=== PATIENT | female | born 1975 | race Caucasian/White ===

== ENCOUNTER 2022-12-27 23:28 | Emergency (ER) | payer BC ==
[~2022-12-27] VITALS: Ht 160 cm; Wt 79.5 kg
[2022-12-28] MEDS ORDERED: ketorolac trometh. 30mg/ml inj. IV ONE (00:15)
[2022-12-28] MEDS ORDERED: LORazepam 2 mg/ml vial IV ONE (00:15)
[2022-12-28] MEDS ORDERED: ondansetron/PF 4mg/2ml inj IV ONE (00:15)
[2022-12-28] MEDS ORDERED: propofol 10mg/ml 20ml vial IV ONE (00:15)
[2022-12-28] MEDS ORDERED: bacitracin 15gm ointment TP ONE (00:15)
[2022-12-28] MEDS ORDERED: ceFAZolin/D5W- 1GM premix 50 ML IV ONE (00:15)
[2022-12-28] MEDS ORDERED: AMOX-419 PO (00:23)
[2022-12-28] MEDS ORDERED: ONDA8TAB13 PO (00:23)
[2022-12-28] MEDS ORDERED: HYDR-3965 PO (00:23)
[2022-12-28] MEDS ORDERED: LIDOcaine 1% W/epiNEPHrine 1:100,000 20ml vial IJ ONE (00:30)
[2022-12-28 02:04] VITALS: BP 132/85
== END 2022-12-28 02:46 | disposition home or self-care (01) ==
LOC: ER 23:30
DX: N61.0 Mastitis without abscess (principal)
CPT/HCPCS: 10060; 87070; 87077; 87186; 96365; 96375; 99152; 99153; 99285; J0690; J1885; J2060; J2405; J7030; 94760; A4620

== ENCOUNTER 2023-02-04 07:06 | Emergency (ER) | payer BC ==
[~2023-02-04] VITALS: Ht 167.6 cm; Wt 90.0 kg
[~2023-02-04 07:06] MED LIST: ONDA8TAB13 PO
[2023-02-04] MEDS ORDERED: haloperidol lactate 5mg/ml inj IM ONE (07:30)
[2023-02-04] MEDS ORDERED: diphenhydrAMINE 50 mg/ml inj IM ONE (07:30)
--- NOTE | 2023-02-04 07:44 | NUR ---
PT ASKED FOR HER MOTHER TO BE CALLED. PT GAVE THIS Tomo Clases PHONE NUMBER:[phone] AND STATES THAT IS MOTHER'S PHONE NUMBER.
[2023-02-04 08:47] LABS: BASOPHILS % (AUTO) 0.4 % (0-1); EOSINOPHILS # (AUTO) 0.2 X10'3 (0-0.9); EOSINOPHILS % (AUTO) 2.1 % (0-6); HEMATOCRIT 36.8 % (35.0-45.0); HEMOGLOBIN 12.4 g/dl (12.0-16.0); LYMPHOCYTES # (AUTO) 1.6 X10'3 (1.1-4.8); LYMPHOCYTES % (AUTO) 15.8 % (21-51); MEAN CORPUSCULAR HEMOGLOBIN 29.5 PG (27.0-31.0); MEAN CORPUSCULAR HGB CONC 33.6 g/dL (33.0-36.5); MEAN CORPUSCULAR VOLUME 87.7 FL (78-98); MEAN PLATELET VOLUME 6.7 FL (7.4-10.4); MONOCYTES # (AUTO) 0.6 X10'3 (0-0.9); MONOCYTES % (AUTO) 5.8 % (2-12); NEUTROPHILS # (AUTO) 7.4 X10'3 (1.8-7.7); NEUTROPHILS % (AUTO) 75.9 % (42-75); PLATELET COUNT 393 X10'3 (140-440); RED BLOOD COUNT 4.19 X10'6 (4.20-5.60); RED CELL DISTRIBUTION WIDTH 13.9 % (11.5-14.5); WHITE BLOOD COUNT 9.8 X10'3 (4.5-11.0)
[2023-02-04 08:55] LABS: ALANINE AMINOTRANSFERASE 38 U/L (12-78); ALBUMIN 3.4 G/DL (3.4-5.0); ALBUMIN/GLOBULIN RATIO 1.1 (1.1-1.5); ALKALINE PHOSPHATASE 71 IU/L (46-116); ANION GAP 9 (8-16); ASPARTATE AMINO TRANSFERASE 26 U/L (10-37); BILIRUBIN,TOTAL 0.9 MG/DL (0.1-1.0); BLOOD UREA NITROGEN 16 MG/DL (7-18); BUN/CREATININE RATIO 13.6 (10.0-20.0); CALCIUM 8.5 MG/DL (8.5-10.1); CHLORIDE 107 MMOL/L (99-107); CREATININE 1.18 MG/DL (0.40-0.90); GLUCOSE 133 MG/DL (70-104); POTASSIUM 3.4 MMOL/L (3.5-5.1); SODIUM 140 MMOL/L (135-145); TOTAL CARBON DIOXIDE 23.9 MMOL/L (24-32); TOTAL PROTEIN 6.6 G/DL (6.4-8.2); eGFR 49 ML/MIN
[2023-02-04 09:05] LABS: ACETAMINOPHEN 13.6 UG/ML (10-30); ETHANOL < 0.010 GM/DL (0.0-0.010)
--- NOTE | 2023-02-04 10:15 | NUR ---
Patient sleeping at this time, pulse ox placed on toe for patient safety with normal saturations, provided blanket.
--- NOTE | 2023-02-04 11:52 | NUR ---
Vivian Balderas (Mother) [phone] for updates
[2023-02-04 13:30] LABS: CLARITY,URINE SLIGHTLY CLOUDY (Clear); COLOR,URINE YELLOW (Yellow); GLUCOSE, URINE NEGATIVE (Neg); KETONES,URINE NEGATIVE (Neg); LEUKOCYTE ESTERASE ,URINE NEGATIVE (Neg); OCCULT BLOOD,URINE NEGATIVE (Neg); PH,URINE 5.5 (4.8-8.0); PROTEIN,URINE NEGATIVE (Neg); UROBILINOGEN,URINE 0.2 E.U/dL (0.2-1.0)
[2023-02-04 13:31] LABS: URINE HCG NEGATIVE (NEG)
[2023-02-04 13:36] LABS: UA COLLECTION TYPE CLN CATCH MIDSTREAM
--- NOTE | 2023-02-04 13:40 | NUR ---
Call from lab nitrate report amended. false positive. RN/MD notified.
[2023-02-04 13:41] LABS: NITRITES, URINE NEGATIVE (Neg)
[2023-02-04 13:42] LABS: BACTERIA,URINE FEW /HPF (Neg); MUCUS STRANDS MANY /LPF (Neg); RBC,URINE 0-2 /HPF (0-2); SQUAMOUS EPITHELIAL CELL,UR MANY /LPF (FEW); WBC,URINE 0-4 /HPF (0-4)
[2023-02-04 14:02] LABS: URINE AMPHETAMINE SCREEN POSITIVE (Neg); URINE BARBITUATE SCREEN NEGATIVE (Neg); URINE BENZODIAZEPINES SCREEN NEGATIVE (Neg); URINE CANNABINOID SCREEN NEGATIVE (Neg); URINE COCAINE SCREEN NEGATIVE (Neg); URINE METHADONE SCREEN NEGATIVE (Neg); URINE OPIATE SCREEN POSITIVE (Neg); URINE PHENCYCLIDINE SCREEN NEGATIVE (Neg)
--- NOTE | 2023-02-04 14:46 | NUR ---
Pt moved to room 13. Pt currently resting in bed. No acute distress noted at this time. Pt son at bedside.
--- NOTE | 2023-02-04 14:51 | NUR ---
Pt not currently in green scrubs. Pt unable to change at this time, too sleepy.
[2023-02-04 17:35] VITALS: BP 113/83; PULSE 98; RESP 16; O2SAT 97
--- NOTE | 2023-02-04 17:35 | NUR ---
PT RESTING IN BED. NO ACUTE DISTRESS NOTED AT THIS TIME.
--- NOTE | 2023-02-04 21:43 | NUR ---
Pt arrived in ER overflow. Pt pleasant, no distress. Pt stated she is waiting for her son to pick her up. MD is releasing patient to family upon arrival.
--- NOTE | 2023-02-04 22:00 | NUR ---
Pt son arrived. All written and verbal instructions provided to patient. She consented to safety plan. She will be contacting [facility] unit as per safety plan. 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 Pt did not have any questions. releasing patient. Pt was evaluated by [facility]. Pt discharged to son.
[2023-02-04 22:04] VITALS: TEMP 97.6
== END 2023-02-04 22:18 | disposition home or self-care (01) ==
LOC: ER 07:06
DX: T39.1X2A Poisoning by 4-Aminophenol derivatives, intentional self-harm, initial encounter (principal); Z20.822 Contact with and (suspected) exposure to COVID-19; Z79.899 Other long term (current) drug therapy; Y92.89 Other specified places as the place of occurrence of the external cause
CPT/HCPCS: 36415; 80053; 80305; 80320; 80329; 81001; 81025; 84443; 85025; 87811; 96372; 99285; J1200; J1630; 99284

== ENCOUNTER 2025-03-31 22:10 | Emergency (ER) | payer BC ==
[~2025-03-31] VITALS: Ht 160 cm; Wt 86.0 kg
[~2025-03-31 22:10] MED LIST changes: +ONDA-245 PO; -ONDA8TAB13 PO
[2025-03-31 22:18] VITALS: TEMP 97.1
--- NOTE | 2025-03-31 22:28 | ELECTROCARDIOGRAPH REPORT ---
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
--- NOTE | 2025-03-31 22:39 | Physician Documentation ---
History of Present Illness ~ Chief Complaint: Dizziness Stated Complaint: NAUSEA/VOMITING Time Seen by MD: 22:34 HPI Patient presents to the emergency room with sudden onset dizziness while she was at work. She states her dizziness is exacerbated with head movement and de scribed as if the room is spinning. No one-sided symptoms/weakness. No chest pain or palpitations. Positive nausea with vomiting Medication Reconciliation Allergies: Coded Allergies: No Known Allergies (Unverified , 12/27/22) Scheduled Ondansetron 8mg ODT (Ondansetron Odt), 1 TAB PO Q6H Past Medical History Past Medical History: No Pertinent History Past Surgical History: noncontributory Lives with: Spouse Lives In: Home Review of Systems ROS All review of systems negative except as per HPI Physical Exam Vital Signs: Temperature: 97.1, Source: Oral, Heart Rate: 73, Respiratory Rate: 16, BP: 156/92, Pulse Oximetry: 100, Weight: 86.000 Oxygen Flow Rate: 0 Physical Exam General: Patient is awake, alert, oriented x4 in no acute distress Head: Normocephalic and atraumatic. Eyes: Conjunctival normal. EOMI. PERRL. ENT: Mucous membranes moist. Neck: Supple, trachea is midline. Chest: Clear to auscultation bilaterally without rales, rhonchi, or wheezes. There is no accessory muscle use or retractions. Cardiac: RRR without murmurs, gallops, or rubs. Neuro: Positive Ryder-Hallpike. No focal neural deficits Progress Progress Note Shanti maneuver attempted on both sides with no improvement of symptoms Results/Orders Results/Orders Completed Orders - MILIND ESCALANTE MD Electrocardiogram (03/31/25 ) Meclizine Tablets (Antivert Tablet) (03/31/25 22:50) Ondansetron Disint. Tablet (Zofran Odt T (03/31/25 22:50) Medications Received in ER Medications (Trade) Dose Ordered Sig/Reema Route PRN Reason Start Time Stop Time Status Last Admin Dose Admin (Antivert tablet) 25 mg ONCE ONCE PO 03/31/25 22:50 03/31/25 22:51 DC 03/31/25 23:01 25 MG (Zofran ODT tablet) 8 mg ONCE ONCE PO 03/31/25 22:50 03/31/25 22:51 DC 03/31/25 23:01 8 MG Vital Signs 03/31/25 03/31/25 03/31/25 03/31/25 22:18 22:46 23:11 23:40 Temp 97.1 Pulse 73 67 84 Resp 16 16 18 16 B/P (MAP) 156/92 162/95 (117) 156/92 (113) Pulse Ox 100 96 98 O2 Flow Rate 0 0 EKG/XRAY/CT/US/VASC/MRI EKG : Additional Comment EKG interpreted by myself shows time of 08/26/2025, rate 79, sinus rhythm, normal axis, no ST changes Medical Decision Making Findings Patient presents to the emergency room with dizziness. Differentials include but are not limited to central vertigo, peripheral vertigo labyrinthitis benign positional vertigo. EKGs reassuring. Given patient's sudden onset of vertigo exacerbated with head movement believe patient is suffering from benign positional vertigo. Nausea improved with anti nausea medications. Meclizine administered. Neurologic exam is reassuring aside from positive Ryder-Hallpike. He had not feel she is suffering from central vertigo/stroke. Had long discussion with her about the pathology of benign positional vertigo as well as the Shanti maneuver. We will refer her to the [facility] should the Shanti maneuver not be sufficient. Departure Disposition: HOME / SELF CARE / HOMELESS Impression: Primary Impression: Benign positional vertigo Condition: Stable Discharge Instructions: Benign Positional Vertigo Additional Instructions: Look up the Shanti maneuver on you tube for techniques and instruction. Follow up with the [facility] should the Shanti maneuver not be effective Referrals: NO PRIMARY CARE PROVIDER (PCP) Prescriptions Ondansetron 8mg ODT (Ondansetron Odt) 8 Mg Tab.rapdis 1 TAB PO Q6H for nausea/vomiting for 3 Days, #12 TAB 0 Refills Prov: MILIND ESCALANTE MD 04/01/25 Meclizine HCl (Meclizine HCl) 25 Mg Tablet 1 TAB PO TID PRN for Dizziness for 10 Days, #30 TAB Prov: MILIND ESCALANTE MD 04/01/25 Education Educated: Patient Educated regarding: diagnosis, treatment, need for follow up Signature Scribe Signature: No scribe Attestation: The note accurately reflects work and decisions made by me.Milind Escalante MD 04/01/25 00:00 MILIND ESCALANTE MD Mar 31, 2025 22:39
[2025-03-31] MEDS: ondansetron 4mg rapidly disintigrating tab PO ONE (23:01)
[2025-04-01] MEDS ORDERED: MECL-302 PO
[2025-04-01] MEDS ORDERED: metoclopramide 5 mg/ml inj IV ONE (00:05)
[2025-04-01 00:22] VITALS: BP 136/84; PULSE 84; RESP 16; O2SAT 98
== END 2025-04-01 00:49 | disposition home or self-care (01) ==
LOC: ER 22:10
DX: H81.10 Benign paroxysmal vertigo, unspecified ear (principal); R11.2 Nausea with vomiting, unspecified
CPT/HCPCS: 93005; 99284; J8597